=== PATIENT | male | born 1980 | race Caucasian/White ===

== ENCOUNTER 2024-08-24 08:58 | Emergency (ER) | payer MEDICAID ==
[2024-08-24 09:07] VITALS: TEMP 98.5
--- NOTE | 2024-08-24 09:07 | ERPHSYRPT ---
- History of Present Illness Time Seen by Provider: 08/24/24 09:06 Source: patient, family Exam Limitations: no limitations Physician History: This is a 43-year-old white male patient who does not have an established primary care provider but has seen Dr. De La Cruz in the past and presents to the emergency department by private vehicle accompanied by his significant other. 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 He has had a right inguinal hernia that he states is increasing in size and tenderness intermittently. He specifically states "when I lie down, it goes back in". In the last week the pain is present more frequently. Patient is allergic to codeine and he takes no medications chronically. Apparently, the patient does not have any insurance and, although he has been seen at other emergency room facilities, he has not followed up as instructed to see a general surgeon for definitive care. Timing/Duration: intermittent Activites at Onset: physical activity Quality: aching Onset Location: other (Right groin/scrotum) Pain Radiation: groin (Right side) Severity of Pain-Max: mild Severity of Pain-Current: mild Associated Symptoms: denies symptoms Prior abdominal problems: none Sexual intercourse history: non-contributory Allergies/Adverse Reactions: codeine Allergy (Verified 08/12/23 08:55) Home Medications: No Reportable Medications [No Reported Medications] 08/02/23 [History] Hx Tetanus, Diphtheria Vaccination/Date Given: Yes Hx Influenza Vaccination/Date Given: No Hx Pneumococcal Vaccination/Date Given: No Travel Risk - International Travel Have you traveled outside of the country in past 3 weeks: No - Emerging Infectious Disease Are you exhibiting symptoms associated with any current EIDs: No - Past Medical History Pertinent Past Medical History: No - Past Surgical History Past Surgical History: Yes Gastrointestinal: Appendectomy - Social History Smoking Status: Current every day smoker Exposure to second hand smoke: Yes Drug Use: none - Social Determinants of Health Will the patient participate in the screening: Yes Do you worry about a steady place to live?: No In the past 12 months,have you had to go without utilities?: No Transportation Issues: No Has anyone in your support network made you feel unsafe?: No Have you or anyone in your house had to go w/o enough food: No - Review of Systems Constitutional: No Symptoms Eyes: No Symptoms Ears, Nose, & Throat: No Symptoms Respiratory: No Symptoms Cardiac: No Symptoms Abdominal/Gastrointestinal: No Symptoms Genitourinary Symptoms: No Symptoms, Other (Reducible right inguinal hernia) Musculoskeletal: No Symptoms Skin: No Symptoms Neurological: No Symptoms Psychological: No Symptoms Endocrine: No Symptoms Hematologic/Lymphatic: No Symptoms Immunological/Allergic: No Symptoms All Other Systems: Reviewed and Negative - Nursing Vital Signs Nursing Vital Signs: Initial Vital Signs Temperature 98.5 F 08/24/24 09:01 Pulse Rate 83 08/24/24 09:01 Respiratory Rate 20 08/24/24 09:01 Blood Pressure 179/118 08/24/24 09:01 O2 Sat by Pulse Oximetry 99 08/24/24 09:01 Pain Scale Pain Intensity 5 - Physical Exam General Appearance: no apparent distress, alert, anxiety Eye Exam: PERRL/EOMI, eyes nml inspection Ears, Nose, Throat Exam: normal ENT inspection, moist mucous membranes Neck Exam: normal inspection, non-tender, supple, full range of motion Respiratory Exam: airway intact, No chest tenderness, No respiratory distress Gastrointestinal/Abdomen Exam: soft, normal bowel sounds, No tenderness, No guarding Rectal Exam: not done Male Genital Exam: hernia mass (Right inguinal hernia, reducible. No evidence of incarcerated hernia) Back Exam: normal inspection, normal range of motion, No vertebral tenderness Neurologic Exam: alert, oriented x 3, cooperative Skin Exam: normal color, warm, dry Lymphatic Exam: No adenopathy SpO2 Interpretation: normal O2 Delivery: Room Air - Course Nursing assessment & vital signs reviewed: Yes - Progress Progress: unchanged Progress Note: 08/24/24 09:48 My medical decision making of the assignment of low complexity of this patient's medical issue today is based on review of the patient's past medical history, review the patient's medication list, review the patient drug allergy list, history present illness and physical findings on examination. The workup in this patient does not require any laboratory radiographic studies. Differential diagnosis includes but is not limited to right inguinal herniadirect, right inguinal herniaindirect, hydrocele, scrotal mass This patient has a reducible right indirect inguinal hernia. There is no evidence of incarceration. The patient is told that the patient will require evaluation by a general surgeon for definitive care. We will attempt to make an appointment for him to see a general surgeon. I will provide him with outpatient instructions. Counseled pt/family regarding: diagnosis, need for follow-up Medical Desision Making - Independent Historian Additional History obtained from: Spouse - Diagnostic Testing Diagnostic test were ordered, analyzed, and reviewed by me: No - Risk of complications Low Risk: Low risk of morbidity from additional dx testing or treatment - Departure Departure Disposition: Home Clinical Impression: Indirect right inguinal hernia Condition: Stable Critical Care Time: No Referrals: DOCTOR,NO FAMILY [Primary Care Provider, UNKNOWN] - Follow up/PCP as directed Additional Instructions: Use Tylenol and ibuprofen for pain control. Stop heavy lifting and physical exertion until after you are evaluated by general surgeon to obtain further instructions and management plan. Follow-up with the general surgeon for evaluation and definitive care. Use on inguinal hernia belt in the interim, while waiting for your appointment with the general surgeon. Return to the emergency department if you are having severe pain in your inguinal hernia site and unable to reduce/push back and your hernia.
[2024-08-24 10:06] VITALS: BP 177/116; PULSE 71; RESP 18; O2SAT 98
== END 2024-08-24 10:28 | disposition home or self-care (01) ==
LOC: ED 08:58
DX: K40.90 Unilateral inguinal hernia, without obstruction or gangrene, not specified as recurrent (principal); Z72.0 Tobacco use
CPT/HCPCS: 99281

== ENCOUNTER 2024-09-13 10:02 | Day surgery (SDC) | payer MEDICAID ==
[~2024-09-13 10:02] MED LIST: Lactated Ringers 1,000 ML IV ONE; Sensorcaine 0.25% 10 ML ONE
[2024-09-13] MEDS ORDERED: ROCEPHIN 1 GM / 100 ML NaCl 1 GM/100 ML IVPB IV ONE (10:03)
[2024-09-13] MEDS: Lactated Ringers 1,000 ML IV SCH (10:13)
[2024-09-13] MEDS: CEFAZOLIN 2 GM/100 ML NaCl 2 GM/100 ML IVPB IV SCH (10:14)
[2024-09-13 10:36] VITALS: RESP 16; O2SAT 99
[2024-09-13] MEDS ORDERED: propofoL IV ONE (11:30)
[2024-09-13] MEDS ORDERED: TORAdol 30 mg Injection ONE (11:30)
[2024-09-13] MEDS ORDERED: Zofran 4 MG/2 ML VIAL ONE (11:30)
[2024-09-13] MEDS ORDERED: BRIDION 200MG/2ML IV ONE (11:30)
[2024-09-13] MEDS ORDERED: dexAMETHasone sodium phosphate ONE (11:30)
[2024-09-13] MEDS ORDERED: Xylocaine-Mpf 2% 5 Ml Vial ONE (11:30)
[2024-09-13] MEDS ORDERED: ROCURONIUM BROMIDE IV ONE (11:30)
[2024-09-13] MEDS ORDERED: SUBLIMAZE 100 MCG/2 ML ONE (11:30)
[2024-09-13] MEDS ORDERED: Sensorcaine 0.25% 10 ML ONE (12:38)
[2024-09-13] MEDS ORDERED: TRANDATE 20 MG/4 ML SYRINGE IV ONE (13:04)
[2024-09-13] MEDS ORDERED: DILAUDID 0.5 MG/0.5 ML SYRINGE ONE (13:20)
[2024-09-13] MEDS ORDERED: APRESOLINE 20 MG/ML INJ ONE (13:52)
[2024-09-13 14:52] VITALS: BP 171/119; PULSE 79; TEMP 97.8
--- NOTE | 2024-09-14 09:50 | OP ---
SURGERY DATE/TIME: 09/13/2024 [id number] PREOPERATIVE DIAGNOSIS: Right inguinal hernia, symptomatic, reducible. POSTOPERATIVE DIAGNOSES: 1) Right inguinal cord lipoma. 2) Epididymitis. PROCEDURE: Right inguinal hernia repair with mesh, Efrem. SURGEON: Blanco Jules MD ANESTHESIA: General. ESTIMATED BLOOD LOSS: Minimal. CONDITION: Stable. COMPLICATIONS: None. SPECIMEN: Cord lipoma. INDICATIONS: Patient presents with a reducible right inguinal hernia, symptomatic on exam. Discussed with patient risks of infection, bleeding, injury to nearby structure, acute pain, chronic pain, mesh complication, hernia recurrence. He elected to proceed with surgery. FINDINGS: Good sized cord lipoma, Efrem repair with mesh. He also has what feels to be epididymitis. DESCRIPTION OF PROCEDURE: Patient was brought to the operating room. General anesthesia induced. Routinely positioned, prepped, and draped. Time-out performed. Received a preoperative antibiotic. The right groin incision was made, carried down. The external oblique incised. The cord was isolated, dissected free. The canal dissected out and there was a large cord lipoma, which was then mobilized and then, highly ligated. The cord was totally evaluated but he does have a prominent cord. The vastus is normal in appearance; however, there is epididymitis palpable down at the testis. At that point a Bard plain polypropylene mesh medium Keyhole cruciate mesh was then placed and then the Prolene suture used to sew it in place, shelving edge, 2-0 Prolene. The tail was reapproximated to recreate the internal ring with 2-0 Prolene. The mesh was flat and satisfactory. The superior edge was sewn in place with 2-0 PDS suture. The nerve was not resected. The fascia was closed with 3-0 Vicryl sutures, Vaishali with 3-0 Vicryl, deep dermal 3-0 Vicryl, skin with 4-0 Vicryl suture. Marcaine had been injected. Steri-Strips and sterile dressings applied. All counts were correct. Patient tolerated the procedure well. He was extubated, taken to the recovery room in stable condition. RECOMMENDATIONS: He did get a dose of ceftriaxone in Recovery and we will give him a 10-day course of doxycycline for the concern for epididymitis. We will see him back in 2 weeks in the office.
== END 2024-09-13 14:52 | disposition home or self-care (01) ==
LOC: SDC 10:02
PROVIDERS: ATTEND Surgery
DX: K40.90 Unilateral inguinal hernia, without obstruction or gangrene, not specified as recurrent (principal); D17.79 Benign lipomatous neoplasm of other sites; N45.1 Epididymitis
CPT/HCPCS: J0360; J0690; J0696; J1100; J1171; J1885; J2405; J2704; J3010; C1781